=== PATIENT | female | born 1990 | race Hispanic/Latino ===

== ENCOUNTER 2018-08-24 21:52 | Emergency (ER) | payer OTHER, SELFPAY ==
--- NOTE | 2018-08-24 22:13 | EDPHYS ---
Physician Documentation [facility] Name: Genevieve Moseley Age: 28 yrs Sex: Female : 1990 Arrival Date: 08/24/2018 Time: 21:54 Bed 16 Private MD: Hector Wilkinson E ED Physician Jameel Ballard HPI: 08/24 22:15 This 28 yrs old Female presents to ER via Ambulatory with complaints of Cough. pm1 22:15 The patient or guardian reports cough, sinus pressure. Onset: The symptoms/episode pm1 began/occurred 4 day(s) ago. Severity of symptoms: in the emergency department the symptoms are actually worse. Modifying factors: The symptoms are alleviated by OTC cold preparation, the symptoms are aggravated by nothing. Associated signs and symptoms: Pertinent positives: earache, rhinorrhea, sore throat, Pertinent negatives: fever. The patient has not experienced similar symptoms in the past. The patient has not recently seen a physician. left sided sinus congestion. 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 - Social history:: Smoking status: Patient/guardian denies using tobacco. - Ebola Screening: : Patient denies travel to an Ebola-affected area in the 21 days before illness onset. ROS: 22:15 Constitutional: Negative for fever, chills, and weight loss, Eyes: Negative for injury, pm1 pain, redness, and discharge, Neck: Negative for injury, pain, and swelling. 22:15 Cardiovascular: Negative for chest pain, palpitations, and edema. 22:15 Abdomen/GI: Negative for abdominal pain, nausea, vomiting, diarrhea, and constipation, Back: Negative for injury and pain, : Negative for injury, bleeding, discharge, and swelling, MS/Extremity: Negative for injury and deformity, Skin: Negative for injury, rash, and discoloration, Neuro: Negative for headache, weakness, numbness, tingling, and seizure. 22:15 ENT: Positive for ear pain, rhinorrhea, sinus congestion, sinus pain, sore throat. 22:15 Respiratory: Positive for cough, Negative for shortness of breath, sputum production, wheezing. Exam: 22:15 Constitutional: This is a well developed, well nourished patient who is awake, alert, pm1 and in no acute distress. 22:15 Eyes: Pupils equal round and reactive to light, extra-ocular motions intact. Lids and lashes normal. Conjunctiva and sclera are non-icteric and not injected. Cornea within normal limits. Periorbital areas with no swelling, redness, or edema. 22:15 Neck: Trachea midline, no thyromegaly or masses palpated, and no cervical lymphadenopathy. Supple, full range of motion without nuchal rigidity, or vertebral point tenderness. No Meningismus. Chest/axilla: Normal chest wall appearance and motion. Nontender with no deformity. No lesions are appreciated. Cardiovascular: Regular rate and rhythm with a normal S1 and S2. No gallops, murmurs, or rubs. Normal PMI, no JVD. No pulse deficits. Respiratory: Lungs have equal breath sounds bilaterally, clear to auscultation and percussion. No rales, rhonchi or wheezes noted. No increased work of breathing, no retractions or nasal flaring. Abdomen/GI: Soft, non-tender, with normal bowel sounds. No distension or tympany. No guarding or rebound. No evidence of tenderness throughout. Back: No spinal tenderness. No costovertebral tenderness. Full range of motion. Skin: Warm, dry with normal turgor. Normal color with no rashes, no lesions, and no evidence of cellulitis. MS/ Extremity: Pulses equal, no cyanosis. Neurovascular intact. Full, normal range of motion. 22:15 Head/face: Sinus tenderness, that is moderate, is located over the left frontal sinus and left maxillary sinus. 22:15 ENT: External ear(s): are unremarkable, Ear canal(s): are normal, TM's: are normal, Nose: nasal drainage, that is minimal, and is seen coming from both nares, that is clear, that is thin, Posterior pharynx: is normal, airway is patent, no erythema, no exudate, no peritonsilar mass, no pooling of secretions, no swelling, no acute changes, peritonsillar mass, is not appreciated, pooling of secretions, is not appreciated. 22:15 Neuro: Orientation: is normal, Motor: is normal, Sensation: is normal, no obvious gross deficits, Gait: is steady, at a normal pace, without difficulty. Vital Signs: 22:00 BP 151 / 85; Pulse 92; Resp 22; Temp 97.2; Pulse Ox 97% on R/A; Weight 121.56 kg (R); aj1 Height 5 ft. 4 in. (162.56 cm) (R); Pain 4/10; 22:00 Body Mass Index 46.00 (121.56 kg, 162.56 cm) aj1 MDM: 22:04 Patient medically screened. pm1 22:12 Data reviewed: vital signs. Data interpreted: Pulse oximetry: on room air is 97 %. pm1 Interpretation: normal. Counseling: I had a detailed discussion with the patient and/or guardian regarding: the historical points, exam findings, and any diagnostic results supporting the discharge/admit diagnosis, the need for outpatient follow up, to return to the emergency department if symptoms worsen or persist or if there are any questions or concerns that arise at home. Administered Medications: No medications were administered Disposition: 08/24/18 22:12 Discharged to Home. Impression: Acute sinusitis. - Condition is Stable. - Discharge Instructions: Sinusitis, Adult. - Prescriptions for Zithromax 500 mg Oral Tablet - take 1 tablet by ORAL route once daily for 3 days; 3 tablet. Zyrtec- D 5-120 mg Oral Tablet Sustained Release 12 hr - take 1 tablet by ORAL route every 12 hours As needed; 20 tablet. Tessalon Perles 100 mg Oral Capsule - take 1 capsule by ORAL route every 8 hours As needed; 15 capsule. - Medication Reconciliation Form, Thank You Letter, Antibiotic Education form. - Follow up: Emergency Department; When: As needed; Reason: Worsening of condition. Follow up: Hector Wilkinson MD; When: 2 - 3 days; Reason: Recheck today's complaints, Continuance of care, Re-evaluation by your physician. - Problem is new. - Symptoms have improved. Addendum: 08/28/2018 04:01 Co-signature as Attending Physician, Jameel Ballard MD. g s Signatures: Jana James RN RN aj1 Vonnie Espino RN RN aa1 Nikhil Peñaloza NP MICROELECTRONICS TECHNICIAN pm1 Jameel Ballard MD MD gs Corrections: (The following items were deleted from the chart) 08/24 22:26 22:12 08/24/2018 22:12 Discharged to Home. Impression: Acute sinusitis. Condition is aa1 Stable. Forms are Medication Reconciliation Form, Thank You Letter, Antibiotic Education, Prescription Opioid Use. Follow up: Emergency Department; When: As needed; Reason: Worsening of condition. Follow up: Hector Wilkinson; When: 2 - 3 days; Reason: Recheck today's complaints, Continuance of care, Re-evaluation by your physician. Problem is new. Symptoms have improved. pm1
--- NOTE | 2018-08-24 22:13 | ER ---
Nurse's Notes [facility] Name: Genevieve Moseley Age: 28 yrs Sex: Female : 1990 Arrival Date: 08/24/2018 Time: 21:54 Bed 16 Private MD: Hector Wilkinson E Diagnosis: Acute sinusitis Presentation: 08/24 21:58 Presenting complaint: Patient states: "I think I have bronchitis. I'm coughing so bad aj1 that I'm almost vomiting. I'm having headache and sinus pressure" Reports she has been having these symptoms for the past 4 days. Denies fever. Transition of care: patient was not received from another setting of care. Onset of symptoms was August 20, 2018. Risk Assessment: Do you want to hurt yourself or someone else? Patient reports no desire to harm self or others. Initial Sepsis Screen: Does the patient meet any 2 criteria? HR > 90 bpm. No. Patient's initial sepsis screen is negative. Does the patient have a suspected source of infection? Yes: Productive cough/pneumonia. Care prior to arrival: None. 21:58 Method Of Arrival: Ambulatory aj1 21:58 Acuity: ARLEN 4 aj1 Triage Assessment: 22:00 General: Appears in no apparent distress. uncomfortable, Behavior is calm, cooperative, aj1 appropriate for age. Pain: Complains of pain in face, left aspect of posterior pharynx and right aspect of posterior pharynx Pain currently is 4 out of 10 on a pain scale. Neuro: Level of Consciousness is awake, alert, obeys commands. Cardiovascular: Patient's skin is warm and dry. Respiratory: Reports shortness of breath on exertion cough that is hacking, persistent Airway is patent Respiratory effort is even, unlabored, Respiratory pattern is regular, symmetrical. 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 - Social history:: Smoking status: Patient/guardian denies using tobacco. - Ebola Screening: : Patient denies travel to an Ebola-affected area in the 21 days before illness onset. Screenin:10 Abuse screen: Denies threats or abuse. Denies injuries from another. Nutritional aa1 screening: No deficits noted. Tuberculosis screening: No symptoms or risk factors identified. Fall Risk None identified. Assessment: 22:10 General: Appears in no apparent distress. comfortable, Behavior is calm, cooperative, aa1 appropriate for age. Pain: Complains of pain in face Quality of pain is described as pressure, Pain began 4 days ago. Neuro: Level of Consciousness is awake, alert, obeys commands, Oriented to person, place, time, situation, Moves all extremities. Gait is steady, Speech is normal. Respiratory: Reports cough that is non-productive, persistent Airway is patent Respiratory effort is even, unlabored, Respiratory pattern is regular, symmetrical, Breath sounds are clear bilaterally. GI: No signs and/or symptoms were reported involving the gastrointestinal system. : No signs and/or symptoms were reported regarding the genitourinary system. EENT: Throat is clear. Derm: Skin is intact, is healthy with good turgor, Skin is pink, warm \\T\\ dry. Musculoskeletal: Circulation, motion, and sensation intact. Capillary refill < 3 seconds. 22:24 Reassessment: Patient appears in no apparent distress at this time. Patient is alert, aa1 oriented x 3, equal unlabored respirations, skin warm/dry/pink. Discussed d/c \\T\\ f/u instructions with pt \\T\\ spouse; denies questions or concerns at this time. Vital Signs: 22:00 BP 151 / 85; Pulse 92; Resp 22; Temp 97.2; Pulse Ox 97% on R/A; Weight 121.56 kg (R); aj1 Height 5 ft. 4 in. (162.56 cm) (R); Pain 4/10; 22:00 Body Mass Index 46.00 (121.56 kg, 162.56 cm) aj1 ED Course: 21:54 Patient arrived in ED. es 21:55 Hector Wilkinson MD is Private Physician. es 21:59 Triage completed. aj1 22:00 Arm band placed on Patient placed in an exam room. aj1 22:01 Nikhil Peñaloza NP is PHCP. pm1 22:01 Jameel Ballard MD is Attending Physician. pm1 22:10 Patient has correct armband on for positive identification. Bed in low position. Call aa1 light in reach. 22:12 Hector Wilkinson MD is Referral Physician. pm1 22:24 Vonnie Espino, RN is Primary Nurse. aa1 22:24 No provider procedures requiring assistance completed. Patient did not have IV access aa1 during this emergency room visit. Administered Medications: No medications were administered Outcome: 22:12 Discharge ordered by MD. pm1 22:24 Discharged to home ambulatory, with significant other. aa1 22:24 Condition: good 22:24 Discharge instructions given to patient, significant other, Instructed on discharge instructions, follow up and referral plans. medication usage, Demonstrated understanding of instructions, follow-up care, medications, Prescriptions given X 3. 22:26 Patient left the ED. aa1 Signatures: Jana James, RN RN aj1 Vonnie Espino, SPARKLE RN aa1 Lala Mott Patrick, POLYSOMNOGRAPHIC TECHNICIAN POLYSOMNOGRAPHIC TECHNICIAN pm1
[2018-08-25 03:42] VITALS: BP 151/85; TEMP 97.2; O2SAT 97
== END 2018-08-24 22:26 | disposition home or self-care (01) ==
LOC: ER 21:52
DX: J01.90 Acute sinusitis, unspecified (principal)
CPT/HCPCS: 99282

== ENCOUNTER 2018-11-26 12:32 | Emergency (ER) | payer SELFPAY ==
--- NOTE | 2018-11-26 14:57 | RAD REPORT ---
EXAM DESCRIPTION: RAD - Foot Right 3 View - 11/26/2018 2:11 pm CLINICAL HISTORY: Right foot pain status post injury FINDINGS: No fracture or dislocation is seen
--- NOTE | 2018-11-26 14:57 | RAD REPORT ---
EXAM DESCRIPTION: RAD - Ankle Right 3 View - 11/26/2018 2:11 pm CLINICAL HISTORY: Right ankle pain status post fall FINDINGS: No fracture or dislocation is seen. Soft tissue swelling laterally
[2018-11-26] MEDS ORDERED: HYDROCODONE/APAP 7.5/325 MG TAB ONE (15:18)
--- NOTE | 2018-11-26 15:49 | ER ---
Nurse's Notes [facility] Name: Genevieve Moseley Age: 28 yrs Sex: Female : 1990 Arrival Date: 11/26/2018 Time: 12:34 Bed 23 Private MD: Hector Wilkinson E Diagnosis: Sprain of other ligament of right ankle Presentation: 11/26 12:54 Presenting complaint: Patient states: Fell walking down the stairs today, reports pain sg bruising and swelling to the R ankle and right foot, denies any head injury or pain anywhere else on the body. Transition of care: patient was not received from another setting of care. Onset of symptoms was November 26, 2018. Risk Assessment: Do you want to hurt yourself or someone else? Patient reports no desire to harm self or others. Initial Sepsis Screen: Does the patient meet any 2 criteria? No. Patient's initial sepsis screen is negative. Does the patient have a suspected source of infection? No. Patient's initial sepsis screen is negative. Care prior to arrival: None. 12:54 Method Of Arrival: Ambulatory sg 12:54 Acuity: ARLEN 4 sg Triage Assessment: 12:52 General: Appears in no apparent distress. uncomfortable, well groomed, well developed, sg well nourished, Behavior is cooperative, appropriate for age, crying. Pain: Complains of pain in right ankle and anterior aspect of right ankle. Musculoskeletal: Circulation, motion, and sensation intact. Range of motion: intact in all extremities, Swelling present in right ankle and anterior aspect of right ankle Reports pain in right ankle and right foot. Historical: - Allergies: 12:55 PENICILLINS; sg - PMHx: 12:55 gestational diabetes; sg - PSHx: 12:55 ; Hernia repair; sg - Immunization history:: Adult Immunizations up to date. - Social history:: Smoking status: Patient/guardian denies using tobacco. - Ebola Screening: : Patient negative for fever greater than or equal to 101.5 degrees Fahrenheit, and additional compatible Ebola Virus Disease symptoms Patient denies exposure to infectious person Patient denies travel to an Ebola-affected area in the 21 days before illness onset No symptoms or risks identified at this time. Screenin:28 Abuse screen: Denies threats or abuse. Denies injuries from another. Nutritional rv screening: No deficits noted. Tuberculosis screening: No symptoms or risk factors identified. Fall Risk None identified. Assessment: 15:27 General: Appears in no apparent distress. uncomfortable. Pain: Complains of pain in rv right ankle. Neuro: Level of Consciousness is awake, alert, obeys commands, Oriented to person, place, time, situation. Cardiovascular: Capillary refill < 3 seconds. Respiratory: Airway is patent. GI: No signs and/or symptoms were reported involving the gastrointestinal system. : No signs and/or symptoms were reported regarding the genitourinary system. EENT: No signs and/or symptoms were reported regarding the EENT system. Derm: Skin is intact. Musculoskeletal: Swelling present in right ankle. Vital Signs: 12:56 BP 147 / 72; Pulse 98; Resp 18; Temp 97.2; Pulse Ox 100% on R/A; Pain 10/10; sg 16:01 BP 138 / 68; Pulse 88; Resp 19 S; Pulse Ox 100% on R/A; rv ED Course: 12:34 Patient arrived in ED. as 12:34 Hector Wilkinson MD is Private Physician. as 12:55 Triage completed. sg 12:56 Arm band placed on. sg 13:36 Cristal Rae FNP-C is PHCP. kb 13:36 Sp Prajapati MD is Attending Physician. kb 14:10 X-ray completed. Portable x-ray completed in exam room. Patient tolerated procedure mh1 well. 14:11 XRAY Ankle RIGHT 3 view In Process Unspecified. EDMS 14:11 XRAY Foot RIGHT 3 View In Process Unspecified. EDMS 14:43 Note: REPEAT XRAY TAKEN PER DR HOGAN. jb2 15:28 Patient has correct armband on for positive identification. Bed in low position. Call rv light in reach. Side rails up X 1. Adult w/ patient. Pulse ox on. NIBP on. 16:01 No provider procedures requiring assistance completed. Patient did not have IV access rv during this emergency room visit. Administered Medications: 15:08 Drug: [place] (7.5 mg-325 mg) 1 tabs Route: PO; rv 16:00 Follow up: Response: Pain is decreased rv Outcome: 15:48 Discharge ordered by . kb 16:01 Discharged to home with crutches. rv 16:01 Condition: good 16:01 Discharge instructions given to patient, Instructed on discharge instructions, follow up and referral plans. medication usage, Demonstrated understanding of instructions, follow-up care, medications, Prescriptions given X 1. 16:02 Patient left the ED. rv Signatures: Dispatcher [employer] EDMS Cristal Rae, ANALYSIS INTERNSHIP-C ANALYSIS INTERNSHIP-Oscar Estrella, SPARKLE RN Carlito Walton [facility] Eleanor Berrios [facility] Danielle Patel Ronaldo, RN RN rv
--- NOTE | 2018-11-26 15:49 | EDPHYS ---
Physician Documentation [facility] Name: Genevieve Moseley Age: 28 yrs Sex: Female : 1990 Arrival Date: 11/26/2018 Time: 12:34 Bed 23 Private MD: Hector Wilkinson E ED Physician Sp Prajapati HPI: 11/26 15:52 This 28 yrs old Female presents to ER via Ambulatory with complaints of Ankle kb Injury. 15:52 The patient presents with an injury, pain, that is acute, swelling, tenderness. The kb complaints affect the right ankle. Onset: The symptoms/episode began/occurred today. Context: The problem was sustained outdoors, resulted from the patient falling, The mechanism of injury is unknown. The patient is unable to bear weight. The patient is not able to ambulate. Associated signs and symptoms: Pertinent positives: swelling, Pertinent negatives: calf tenderness, fever, nausea, numbness, rash, tingling, vomiting, warmth, weakness. Modifying factors: The symptoms are alleviated by nothing, the symptoms are aggravated by weight bearing, movement. Severity of symptoms: At their worst the symptoms were moderate, in the emergency department the symptoms are unchanged. The patient has not experienced similar symptoms in the past. The patient has not recently seen a physician. Historical: - Allergies: 12:55 PENICILLINS; sg - PMHx: 12:55 gestational diabetes; sg - PSHx: 12:55 ; Hernia repair; sg - Immunization history:: Adult Immunizations up to date. - Social history:: Smoking status: Patient/guardian denies using tobacco. - Ebola Screening: : Patient negative for fever greater than or equal to 101.5 degrees Fahrenheit, and additional compatible Ebola Virus Disease symptoms Patient denies exposure to infectious person Patient denies travel to an Ebola-affected area in the 21 days before illness onset No symptoms or risks identified at this time. ROS: 15:51 Constitutional: Negative for fever, chills, and weight loss, Cardiovascular: Negative kb for chest pain, palpitations, and edema, Respiratory: Negative for shortness of breath, cough, wheezing, and pleuritic chest pain, Abdomen/GI: Negative for abdominal pain, nausea, vomiting, diarrhea, and constipation, : Negative for injury, bleeding, discharge, and swelling, Skin: Negative for injury, rash, and discoloration, Neuro: Negative for headache, weakness, numbness, tingling, and seizure. 15:51 MS/extremity: Positive for injury or acute deformity, decreased range of motion, pain, swelling, tenderness, of the right foot and right ankle. Exam: 15:51 Constitutional: This is a well developed, well nourished patient who is awake, alert, kb and in no acute distress. Head/Face: Normocephalic, atraumatic. ENT: Nares patent. No nasal discharge, no septal abnormalities noted. Tympanic membranes are normal and external auditory canals are clear. Oropharynx with no redness, swelling, or masses, exudates, or evidence of obstruction, uvula midline. Mucous membranes moist. Neck: Trachea midline, no thyromegaly or masses palpated, and no cervical lymphadenopathy. Supple, full range of motion without nuchal rigidity, or vertebral point tenderness. No Meningismus. Chest/axilla: Normal chest wall appearance and motion. Nontender with no deformity. No lesions are appreciated. Cardiovascular: Regular rate and rhythm with a normal S1 and S2. No gallops, murmurs, or rubs. Normal PMI, no JVD. No pulse deficits. Respiratory: Lungs have equal breath sounds bilaterally, clear to auscultation and percussion. No rales, rhonchi or wheezes noted. No increased work of breathing, no retractions or nasal flaring. Abdomen/GI: Soft, non-tender, with normal bowel sounds. No distension or tympany. No guarding or rebound. No evidence of tenderness throughout. Skin: Warm, dry with normal turgor. Normal color with no rashes, no lesions, and no evidence of cellulitis. Neuro: Awake and alert, GCS 15, oriented to person, place, time, and situation. Cranial nerves II-XII grossly intact. Motor strength 5/5 in all extremities. Sensory grossly intact. Cerebellar exam normal. Normal gait. 15:51 Musculoskeletal/extremity: Extremities: grossly normal except: noted in the right foot and right ankle: decreased ROM, pain, swelling, tenderness, ROM: limited active range of motion due to pain, in the right ankle, Circulation is intact in all extremities. Sensation intact. Weight bearing: is unable to bear weight. Vital Signs: 12:56 BP 147 / 72; Pulse 98; Resp 18; Temp 97.2; Pulse Ox 100% on R/A; Pain 10/10; sg 16:01 BP 138 / 68; Pulse 88; Resp 19 S; Pulse Ox 100% on R/A; rv MDM: 14:40 Patient medically screened. kb 15:51 Data reviewed: vital signs, nurses notes. Data interpreted: Pulse oximetry: on room air kb is 100 %. Interpretation: normal. Counseling: I had a detailed discussion with the patient and/or guardian regarding: the historical points, exam findings, and any diagnostic results supporting the discharge/admit diagnosis, radiology results, the need for outpatient follow up, a orthopedic surgeon, to return to the emergency department if symptoms worsen or persist or if there are any questions or concerns that arise at home. 11/26 13:00 Order name: XRAY Ankle RIGHT 3 view; Complete Time: 14:58 sg 11/26 13:00 Order name: XRAY Foot RIGHT 3 View; Complete Time: 15:01 sg 11/26 15:01 Order name: Short Leg Splint; Complete Time: 15:26 kb 11/26 15:01 Order name: Crutches; Complete Time: 15:27 kb Administered Medications: 15:08 Drug: [place] (7.5 mg-325 mg) 1 tabs Route: PO; rv 16:00 Follow up: Response: Pain is decreased rv Disposition: 11/26/18 15:48 Discharged to Home. Impression: Sprain of other ligament of right ankle. - Condition is Stable. - Discharge Instructions: Ankle Sprain, [id number]. - Prescriptions for Diclofenac Sodium 75 mg Oral Tablet, Delayed Release (E.C.) - take 1 tablet by ORAL route 2 times per day As needed; 30 tablet. - Medication Reconciliation Form, Thank You Letter, Antibiotic Education, Prescription Opioid Use form. - Follow up: Emergency Department; When: As needed; Reason: Worsening of condition. Follow up: Private Physician; When: 2 - 3 days; Reason: Recheck today's complaints, Continuance of care, Re-evaluation by your physician. Addendum: 11/27/2018 19:03 Co-signature as Attending Physician, Sp Prajapati MD I agree with the assessment and k dr plan of care. Signatures: Dispatcher [employer] Cristal Castañeda, PEARL RESTORER-C PEARL RESTORER-CkOscar Peralta RN RN sg Sp Prajapati MD MD [facility] Tyrone Negron RN RN rv Corrections: (The following items were deleted from the chart) 11/26 16:02 15:48 11/26/2018 15:48 Discharged to Home. Impression: Sprain of other ligament of rv right ankle. Condition is Stable. Forms are Medication Reconciliation Form, Thank You Letter, Antibiotic Education, Prescription Opioid Use. Follow up: Emergency Department; When: As needed; Reason: Worsening of condition. Follow up: Private Physician; When: 2 - 3 days; Reason: Recheck today's complaints, Continuance of care, Re-evaluation by your physician. kb
[2018-11-26 16:07] VITALS: TEMP 97.2; O2SAT 100
[2018-11-26 16:08] VITALS: BP 138/68
== END 2018-11-26 16:02 | disposition home or self-care (01) ==
LOC: ER 12:32
DX: S93.491A Sprain of other ligament of right ankle, initial encounter (principal); W19.XXXA Unspecified fall, initial encounter; Y93.9 Activity, unspecified; Y92.89 Other specified places as the place of occurrence of the external cause; Z88.0 Allergy status to penicillin
CPT/HCPCS: 99284

== ENCOUNTER 2020-12-18 06:01 | Emergency (ER) | payer BC, SELFPAY ==
--- OUTSIDE RECORDS SUMMARY | 2020-12-18 06:03 | XMS REPORT | Continuity of Care Document ---
:1990 Author Organization [facility] t Address [address] [place] [address] Dr. Arevalo [address] [place] [address] Care Team Providers Name Role Phone Unavailable Unavailable Unavailable Problems Condition Condition Condition Status Onset Resolution Last Treating Co mments Source Name Details Category Date Date Treatment Clinician Date Hypothyroi Hypothyroi Problem Active [facility] illage dism dism 2-05 Family 00:00: Practic 00 e Diabetes Diabetes Problem Active [place] ge mellitus Mellitus 2- Family 00:00: Practic 00 e Hypertrigl Hypertrigl Problem Active [facility] yceridemia yceridemia 2-05 Fa angel 00:00: Practic 00 e Dyslipidem Dyslipidem Problem Active [facility] ia ia 2- Family 00:00: Practic 00 e Allergies, Adverse Reactions, Alerts This patient has no known allergies or adverse reactions. Social History Smoking Status Start Date Stop Date Source Never Smoker [facility] P natasha Medications Ordered Filled Start Stop Current Ordering Indication Dosage Frequency Signature Comments Components Source Medication Medication Date Date Medication? Clinician (SIG) Name Name Ozempic Ozempic No .25mg Q1W Ozempic [place] ge 0.25 mg or 0.25 mg or 0.25 mg or Family 0.5 mg (2 0.5 mg (2 0.5 mg (2 Practic mg/1.5 mL) mg/1.5 mL) mg/1.5 mL) e subcutaneou subcutaneou subcutaneo s pen s pen us pen injector injector injector Inject 0.25 Inject 0.25 Inject mg every mg every 0.25 mg week by week by every week subcutaneou subcutaneou by s route. s route. subcutaneo us route. Immunizations Ordered Immunization Filled Immunization Date Status Commen ts Source Name Name Tdap Tdap 2020-11-03 Completed [facility] 14:34:00 Practice Vital Signs Vital Name Observation Time Observation Value Comments Source BP Diastolic 2020-11-03 00:00:00 78 mm[Hg] [facility] Height 2020-11-03 00:00:00 63 [in_i] [facility] BMI (Body Mass 2020-11-03 00:00:00 52.2 kg/m2 [facility] Family Index) Practice BP Systolic 2020-11-03 00:00:00 115 mm[Hg] [facility] Body Weight 2020-11-03 00:00:00 294.6 [lb_av] [facility] Procedures Procedure Date / Time Performed Performing Clinician Sour e Hernia Repair [facility] ractice Section [facility] Plan of Care Planned Activity Planned Date Details Comments Source Future Scheduled Test Dr.Amy Narvaez "Auto [facility] immune solution" Practice [code = Dr.Amy Narvaez "Auto immune solution"] Instructions [facility] Encounters Start End Encounter Admission Attending Care Care Encounter Source Date/Time Date/Time Type Type Clinicians Facility Department ID 2020-11-03 2020-11-03 [facility] [place] - [id number] [facility] - Prac tic [id number] _[facility] e [facility] ([facility]) [address], [place] [address] , Ph. Results This patient has no known results.
--- NOTE | 2020-12-18 06:38 | ER ---
Nurse's Notes [facility] Name: Genevieve Moseley Age: 30 yrs Sex: Female : 1990 Arrival Date: 12/18/2020 Time: 06:05 Bed 17 Private MD: Diagnosis: Acute sinusitis Presentation: 12/18 06:16 Chief complaint: Patient states: I am having sinus pressure, cough ( green phlegm) , rr5 congestion and I have been tested last Friday for COVID it was negative. denies fever. Coronavirus screen: Client denies travel out of the [place] in the last 14 days. congestion, cough unrelated to allergies. Ebola Screen: Patient negative for fever greater than or equal to 101.5 degrees Fahrenheit, and additional compatible Ebola Virus Disease symptoms Patient denies exposure to infectious person. Patient denies travel to an Ebola-affected area in the 21 days before illness onset. Resp Distress? No respiratory distress is noted at this time. Initial Sepsis Screen: Does the patient meet any 2 criteria? HR > 90 bpm. No. Patient's initial sepsis screen is negative. Does the patient have a suspected source of infection? Yes: Productive cough/pneumonia. Risk Assessment: Do you want to hurt yourself or someone else? Patient reports no desire to harm self or others. Onset of symptoms was December 18, 2020. 06:16 Method Of Arrival: Ambulatory rr5 06:16 Acuity: ARLEN 3 rr5 06:16 Care prior to arrival: Medication(s) given: pseudophed. 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 - Social history:: Smoking status: unknown Patient uses alcohol, occasionally. Screenin:21 Abuse screen: Denies threats or abuse. Denies injuries from another. Nutritional rr5 screening: No deficits noted. Tuberculosis screening: No symptoms or risk factors identified. Fall Risk None identified. Total Jc Fall Scale indicates No Risk (0-24 pts). Assessment: 06:21 General: Appears in no apparent distress. uncomfortable, Behavior is calm, cooperative, rr5 appropriate for age. Pain: Complains of pain in nose Pain currently is 5 out of 10 on a pain scale. Quality of pain is described as pressure, Pain began gradually, Is intermittent. Neuro: Level of Consciousness is awake, alert, obeys commands, Oriented to person, place, time. Cardiovascular: Capillary refill < 3 seconds Patient's skin is warm and dry. Respiratory: Reports cough that is productive, Airway is patent Respiratory effort is even, unlabored, Respiratory pattern is regular, symmetrical, GI: No signs and/or symptoms were reported involving the gastrointestinal system. : No signs and/or symptoms were reported regarding the genitourinary system. EENT: Reports congestion and sinus pressure. Derm: Skin temperature is warm. Musculoskeletal: Capillary refill < 3 seconds. 06:41 Reassessment: Patient appears in no apparent distress at this time. Patient is alert, rr5 oriented x 3, equal unlabored respirations, skin warm/dry/pink. discharge instruction given and explained without complaints made. Vital Signs: 06:16 BP 156 / 96; Pulse 105; Resp 19; Temp 98.9; Pulse Ox 96% ; Weight 122.47 kg; Height 5 rr5 ft. 5 in. (165.10 cm); Pain 5/10; 06:47 BP 149 / 90; Pulse 103; Resp 18; Pulse Ox 100% ; rr5 06:16 Body Mass Index 44.93 (122.47 kg, 165.10 cm) rr5 ED Course: 06:05 Patient arrived in ED. am4 06:11 Juan Antonio Braga RN is Primary Nurse. rr5 06:19 Usman Goncalves MD is Attending Physician. mh7 06:19 Triage completed. rr5 06:21 Arm band placed on right wrist. rr5 06:22 Patient has correct armband on for positive identification. Placed in gown. Bed in low rr5 position. Call light in reach. 06:41 No provider procedures requiring assistance completed. Patient did not have IV access rr5 during this emergency room visit. Administered Medications: 06:35 Drug: Tylenol 1000 mg Route: PO; rr5 06:47 Follow up: Response: No adverse reaction rr5 Outcome: 06:38 Discharge ordered by . mh7 06:41 Discharged to home ambulatory. rr5 06:41 Condition: stable 06:46 Discharge instructions given to patient, Instructed on discharge instructions, follow rr5 up and referral plans. medication usage, Demonstrated understanding of instructions, follow-up care, medications, Prescriptions given X 3. 06:47 Patient left the ED. rr5 Signatures: Juan Antonio Braga RN RN rr5 Usman Goncalves MD MD 7 Cyndy Patel [facility]
--- NOTE | 2020-12-18 06:38 | EDPHYS ---
Physician Documentation [facility] Name: Genevieve Moseley Age: 30 yrs Sex: Female : 1990 Arrival Date: 12/18/2020 Time: 06:05 Bed 17 Private MD: ED Physician Usman Goncalves HPI: 12/18 06:27 This 30 yrs old Female presents to ER via Ambulatory with complaints of mh7 Congestion, Sinus Congestion. 06:29 The patient or guardian reports Sinus congestion and pain. Onset: The symptoms/episode mh7 began/occurred 3 day(s) ago. Severity of symptoms: At their worst the symptoms were moderate, yesterday, in the emergency department the symptoms have improved, moderately. Modifying factors: The symptoms are alleviated by sudafed, the symptoms are aggravated by touching area. Associated signs and symptoms: Pertinent positives: chest pain, congestion, this patient has no pertinent positive symptoms Pertinent negatives: chest pain, diarrhea, ear ache, fever, nausea, rhinorrhea, sore throat, vomiting. 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 - Social history:: Smoking status: unknown Patient uses alcohol, occasionally. ROS: 06:29 Constitutional: Negative for fever, chills, and weight loss, Eyes: Negative for injury, mh7 pain, redness, and discharge, Neck: Negative for injury, pain, and swelling, Cardiovascular: Negative for chest pain, palpitations, and edema, Respiratory: Negative for shortness of breath, cough, wheezing, and pleuritic chest pain, Abdomen/GI: Negative for abdominal pain, nausea, vomiting, diarrhea, and constipation, Back: Negative for injury and pain, : Negative for injury, bleeding, discharge, and swelling, MS/Extremity: Negative for injury and deformity, Skin: Negative for injury, rash, and discoloration, Neuro: Negative for headache, weakness, numbness, tingling, and seizure, Psych: Negative for depression, anxiety, suicide ideation, homicidal ideation, and hallucinations, Allergy/Immunology: Negative for hives, rash, and allergies, Endocrine: Negative for neck swelling, polydipsia, polyuria, polyphagia, and marked weight changes, Hematologic/Lymphatic: Negative for swollen nodes, abnormal bleeding, and unusual bruising. Exam: 06:29 Constitutional: This is a well developed, well nourished patient who is awake, alert, mh7 and in no acute distress. 06:29 Eyes: Pupils equal round and reactive to light, extra-ocular motions intact. Lids and lashes normal. Conjunctiva and sclera are non-icteric and not injected. Cornea within normal limits. Periorbital areas with no swelling, redness, or edema. ENT: Nares patent. No nasal discharge, no septal abnormalities noted. Tympanic membranes are normal and external auditory canals are clear. Oropharynx with no redness, swelling, or masses, exudates, or evidence of obstruction, uvula midline. Mucous membranes moist. Neck: Trachea midline, no thyromegaly or masses palpated, and no cervical lymphadenopathy. Supple, full range of motion without nuchal rigidity, or vertebral point tenderness. No Meningismus. Chest/axilla: Normal chest wall appearance and motion. Nontender with no deformity. No lesions are appreciated. Cardiovascular: Regular rate and rhythm with a normal S1 and S2. No gallops, murmurs, or rubs. Normal PMI, no JVD. No pulse deficits. Respiratory: Lungs have equal breath sounds bilaterally, clear to auscultation and percussion. No rales, rhonchi or wheezes noted. No increased work of breathing, no retractions or nasal flaring. Abdomen/GI: Soft, non-tender, with normal bowel sounds. No distension or tympany. No guarding or rebound. No evidence of tenderness throughout. Back: No spinal tenderness. No costovertebral tenderness. Full range of motion. Skin: Warm, dry with normal turgor. Normal color with no rashes, no lesions, and no evidence of cellulitis. MS/ Extremity: Pulses equal, no cyanosis. Neurovascular intact. Full, normal range of motion. Neuro: Awake and alert, GCS 15, oriented to person, place, time, and situation. Cranial nerves II-XII grossly intact. Motor strength 5/5 in all extremities. Sensory grossly intact. Cerebellar exam normal. Normal gait. Psych: Awake, alert, with orientation to person, place and time. Behavior, mood, and affect are within normal limits. 06:29 Head/face: Sinus tenderness, that is moderate, is located over the right frontal sinus, left frontal sinus, right maxillary sinus and left maxillary sinus. Vital Signs: 06:16 BP 156 / 96; Pulse 105; Resp 19; Temp 98.9; Pulse Ox 96% ; Weight 122.47 kg; Height 5 rr5 ft. 5 in. (165.10 cm); Pain 5/10; 06:47 BP 149 / 90; Pulse 103; Resp 18; Pulse Ox 100% ; rr5 06:16 Body Mass Index 44.93 (122.47 kg, 165.10 cm) rr5 MDM: 06:29 Differential Diagnosis: Upper Respiratory Infection Sinusitis Viral Syndrome. Data [facility] reviewed: vital signs, nurses notes. Data interpreted: Pulse oximetry: on room air is 96 %. Interpretation: normal. Counseling: I had a detailed discussion with the patient and/or guardian regarding: the historical points, exam findings, and any diagnostic results supporting the discharge/admit diagnosis, the need for outpatient follow up, to return to the emergency department if symptoms worsen or persist or if there are any questions or concerns that arise at home. 06:38 Patient medically screened. [facility] Administered Medications: 06:35 Drug: Tylenol 1000 mg Route: PO; rr5 06:47 Follow up: Response: No adverse reaction rr5 Disposition: 12/18/20 06:38 Discharged to Home. Impression: Acute sinusitis. - Condition is Stable. - Discharge Instructions: Sinusitis, Adult, [id number]. - Prescriptions for guaifenesin 200 mg Oral tablet - take 1 tablet by ORAL route every 4 hours As needed as needed; 15 tablet. Zithromax Z- Edward 250 mg Oral Tablet - take 1 tablet by ORAL route as directed for 5 days Day 1 - take two (2) tablets one time. Day 2, 3, 4 , 5 take one (1) tablet once daily.; 6 tablet. Afrin (oxymetazoline) 0.05 % Nasal Aerosol, [place] - spray 2 sprays by INTRANASAL route 2 times per day As needed; 1 Container. - Medication Reconciliation Form, Thank You Letter, Antibiotic Education, Prescription Opioid Use form. - Follow up: Private Physician; When: 1 - 2 days; Reason: Worsening of condition, Recheck today's complaints, Continuance of care, Re-evaluation by your physician. - Problem is new. - Symptoms have improved. Signatures: Juan Antonio Braga RN RN rr5 Usman Goncalves MD MD mh7 Corrections: (The following items were deleted from the chart) 06:47 06:38 12/18/2020 06:38 Discharged to Home. Impression: Acute sinusitis. Condition is rr5 Stable. Forms are Medication Reconciliation Form, Thank You Letter, Antibiotic Education, Prescription Opioid Use. Follow up: Private Physician; When: 1 - 2 days; Reason: Worsening of condition, Recheck today's complaints, Continuance of care, Re-evaluation by your physician. Problem is new. Symptoms have improved. mh7
[2020-12-18] MEDS ORDERED: ACETAMINOPHEN 500 MG TAB ONE (06:47)
[2020-12-18 06:52] VITALS: TEMP 98.9
[2020-12-18 06:54] VITALS: BP 149/90; O2SAT 100
== END 2020-12-18 06:47 | disposition home or self-care (01) ==
LOC: ER 06:01
DX: J01.90 Acute sinusitis, unspecified (principal); Z88.0 Allergy status to penicillin
CPT/HCPCS: 99283

== ENCOUNTER 2021-02-24 21:10 | Emergency (ER) | payer BC ==
--- OUTSIDE RECORDS SUMMARY | 2021-02-24 21:14 | XMS REPORT | Continuity of Care Document ---
:1990 Author Organization [facility] t Address [address] [place] [address] Dr. Arevalo [address] [place] [address] Care Team Providers Name Role Phone Unavailable [...] Start Date Stop Date Source Never Smoker [facility] Family P natasha Medications Ordered Filled Start [...] Source Name Name Tdap Tdap 2020-11-03 Completed [facility] 14:34:00 Practice Vital Signs Vital Name Observation Time Observation Value Comments Source BP Diastolic 2020-11-03 00:00:00 78 mm[Hg] [facility] Height 2020-11-03 00:00:00 63 [in_i] [facility] BMI (Body Mass 2020-11-03 00:00:00 52.2 kg/m2 [facility] Family Index) Practice BP Systolic 2020-11-03 00:00:00 115 mm[Hg] [facility] Body Weight 2020-11-03 00:00:00 294.6 [lb_av] [facility] Procedures Procedure Date / Time Performed Performing Clinician Sour e Hernia Repair [facility] ractice Section [facility] Plan of Care Planned Activity Planned Date Details Comments Source Future Scheduled Test Dr.Amy Narvaez "Auto [facility] immune solution" Practice [code = Dr.Amy Narvaez "Auto immune solution"] Instructions [facility] Encounters Start End Encounter Admission Attending Care Care Encounter Source Date/Time Date/Time Type Type Clinicians Facility Department ID 2020-11-03 2020-11-03 [facility] [place] - [id number] [facility]: Medical - Prac tic [id number] _[facility] ([facility]) [address], [place] [address] , Ph. Results This patient has no known results.
[2021-02-24] MEDS ORDERED: dexAMETHasone 10 MG/ML VIAL ONE (23:37)
[2021-02-24] MEDS ORDERED: FAMOTIDINE 20 MG TAB ONE (23:37)
[2021-02-24] MEDS ORDERED: DIPHENHYDRAMINE 25 MG TAB/CAP ONE (23:37)
--- NOTE | 2021-02-25 00:24 | EDPHYS ---
Physician Documentation [facility] Name: Genevieve Moseley Age: 30 yrs Sex: Female : 1990 Arrival Date: 02/24/2021 Time: 21:14 Bed 24 Private MD: ED Physician Usman Goncalves HPI: 02/24 23:13 This 30 yrs old Female presents to ER via Ambulatory with complaints of Rash. pm1 23:13 The patient's rash thought to be caused by an unknown cause. The rash is located on the pm1 right arm, left arm, right leg and left leg. The rash can be described as raised. Onset: The symptoms/episode began/occurred yesterday. Associated signs and symptoms: Pertinent positives: itching, Pain Pertinent negatives: difficulty breathing, fever, swelling of lips, swelling of throat, swelling of tongue. Severity of symptoms: in the emergency department the symptoms are unchanged. Treatment given at home: Benadryl, steroid lotion/cream. The patient has not experienced similar symptoms in the past. The patient has not recently seen a physician. 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 Flu vaccine is up to date. - Social history:: Smoking status: Patient denies any tobacco usage or history of. ROS: 23:13 Constitutional: Negative for fever, chills, and weight loss, Eyes: Negative for injury, pm1 pain, redness, and discharge, ENT: Negative for injury, pain, and discharge, Cardiovascular: Negative for chest pain, palpitations, and edema, Respiratory: Negative for shortness of breath, cough, wheezing, and pleuritic chest pain, Abdomen/GI: Negative for abdominal pain, nausea, vomiting, diarrhea, and constipation, MS/Extremity: Negative for injury and deformity. 23:13 Neuro: Negative for headache, weakness, numbness, tingling, and seizure. 23:13 Skin: Positive for rash, of the left leg and right leg and left arm and right arm. Exam: 23:13 Constitutional: This is a well developed, well nourished patient who is awake, alert, pm1 and in no acute distress. Head/Face: Normocephalic, atraumatic. 23:13 Eyes: Extraocular movements: intact throughout, Conjunctiva: no acute changes, Sclera: no acute changes. 23:13 ENT: Mouth: Lips: normal, Oral mucosa: normal, pink and intact, moist. 23:13 Cardiovascular: Rate: normal, Rhythm: regular, Pulses: no pulse deficits are appreciated. 23:13 Respiratory: Exam negative for acute changes, respiratory distress, shortness of breath, Breath sounds: are clear throughout. 23:13 Skin: Appearance: normal except for affected area, consistent with insect bites, on the left leg and right leg and left arm and right arm. 23:13 Neuro: Exam negative for acute changes, Orientation: is normal, Mentation: is normal, Motor: is normal, moves all fours, Gait: is steady, at a normal pace, without difficulty. Vital Signs: 21:37 BP 138 / 76; Pulse 83; Resp 18 S; Temp 97.6(TE); Pulse Ox 98% on R/A; ca1 MDM: 23:04 Patient medically screened. pm1 02/25 00:23 Data reviewed: vital signs. Data interpreted: Pulse oximetry: on room air is 98 %. pm1 Interpretation: normal. 00:23 Counseling: I had a detailed discussion with the patient and/or guardian regarding: the pm1 historical points, exam findings, and any diagnostic results supporting the discharge/admit diagnosis, the need for outpatient follow up, to return to the emergency department if symptoms worsen or persist or if there are any questions or concerns that arise at home. Administered Medications: 02/24 23:25 Drug: Decadron (dexamethasone) 10 mg Route: IM; Site: left ventrogluteal; iw 23:50 Follow up: Response: No adverse reaction iw 23:25 Drug: Benadryl (diphenhydrAMINE) 25 mg Route: PO; iw 23:50 Follow up: Response: No adverse reaction iw 23:26 Drug: Pepcid (famotidine) 20 mg Route: PO; iw 23:50 Follow up: Response: No adverse reaction iw Disposition: 02/25 06:19 Co-signature as Attending Physician, Usman Goncalves MD. mh7 Disposition: 02/25/21 00:24 Discharged to Home. Impression: Rash and other nonspecific skin eruption. - Condition is Stable. - Discharge Instructions: Insect Bite, Rash. - Prescriptions for Benadryl 25 mg Oral Capsule - take 1 capsule by ORAL route every 6 hours As needed; 30 tablet. Pepcid 20 mg Oral Tablet - take 1 tablet by ORAL route every 12 hours for 10 days; 20 tablet. Medrol (Edward) 4 mg Oral Tablets, Dose Pack - take 1 tablet by ORAL route as directed - follow package instructions; 1 packet. - Medication Reconciliation Form, Thank You Letter, Antibiotic Education, Prescription Opioid Use form. - Follow up: Emergency Department; When: As needed; Reason: Worsening of condition. Follow up: Private Physician; When: 2 - 3 days; Reason: Recheck today's complaints, Continuance of care, Re-evaluation by your physician. - Problem is new. - Symptoms have improved. Signatures: Naomi Frances RN RN iw Nikhil Peñaloza NP LINE CLEARANCE FOREMAN pm1 Ирина Velez RN RN ca1 Usman Goncalves MD MD mh7 Corrections: (The following items were deleted from the chart) 00:41 00:24 02/25/2021 00:24 Discharged to Home. Impression: Rash and other nonspecific skin iw eruption. Condition is Stable. Discharge Instructions: Insect Bite, Rash. Prescriptions for Benadryl 25 mg Oral Capsule - take 1 capsule by ORAL route every 6 hours As needed; 30 tablet, Pepcid 20 mg Oral Tablet - take 1 tablet by ORAL route every 12 hours for 10 days; 20 tablet, Medrol (Edward) 4 mg Oral Tablets, Dose Pack - take 1 tablet by ORAL route as directed - follow package instructions; 1 packet. and Forms are Medication Reconciliation Form, Thank You Letter, Antibiotic Education, Prescription Opioid Use. Follow up: Emergency Department; When: As needed; Reason: Worsening of condition. Follow up: Private Physician; When: 2 - 3 days; Reason: Recheck today's complaints, Continuance of care, Re-evaluation by your physician. Problem is new. Symptoms have improved. pm1
--- NOTE | 2021-02-25 00:24 | ER ---
Nurse's Notes [facility] Name: Genevieve Moseley Age: 30 yrs Sex: Female : 1990 Arrival Date: 02/24/2021 Time: 21:14 Bed 24 Private MD: Diagnosis: Rash and other nonspecific skin eruption Presentation: 02/24 21:37 Chief complaint: Patient states: Rash and bumps all over my body, Noticed started ca1 yesterday. C/O severe itching. Took Benadryl and Cortisone, no relief. Coronavirus screen: Client denies travel out of the [place] in the last 14 days. At this time, the client does not indicate any symptoms associated with coronavirus-19. Ebola Screen: Patient negative for fever greater than or equal to 101.5 degrees Fahrenheit, and additional compatible Ebola Virus Disease symptoms Patient denies exposure to infectious person. Patient denies travel to an Ebola-affected area in the 21 days before illness onset. No symptoms or risks identified at this time. Initial Sepsis Screen: Does the patient meet any 2 criteria? No. Patient's initial sepsis screen is negative. Does the patient have a suspected source of infection? No. Patient's initial sepsis screen is negative. Risk Assessment: Do you want to hurt yourself or someone else? Patient reports no desire to harm self or others. Onset of symptoms was February 24, 2021. 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 Flu vaccine is up to date. - Social history:: Smoking status: Patient denies any tobacco usage or history of. Screenin:55 Abuse screen: Denies threats or abuse. Denies injuries from another. Nutritional iw screening: No deficits noted. Tuberculosis screening: No symptoms or risk factors identified. Fall Risk None identified. Assessment: 23:00 General: Appears in no apparent distress. Behavior is calm, cooperative. Pain: Denies iw pain. Neuro: Level of Consciousness is awake, alert, obeys commands, Oriented to person, place, time, situation. Derm: Rash noted that is raised, urticaria, on right arm, left arm, right leg and left leg. Musculoskeletal: Range of motion: intact in all extremities. 23:54 Reassessment: Patient appears in no apparent distress at this time. Patient and/or iw family updated on plan of care and expected duration. Pain level reassessed. Patient is alert, oriented x 3, equal unlabored respirations, skin warm/dry/pink. Vital Signs: 21:37 BP 138 / 76; Pulse 83; Resp 18 S; Temp 97.6(TE); Pulse Ox 98% on R/A; ca1 ED Course: 21:14 Patient arrived in ED. am4 21:40 Triage completed. ca1 21:40 Patient has correct armband on for positive identification. iw 21:41 Arm band placed on right wrist. ca1 22:44 Naomi Frances RN is Primary Nurse. iw 22:49 Nikhil Peñaloza NP is PHCP. pm1 22:49 Usman Goncalves MD is Attending Physician. pm1 23:55 No provider procedures requiring assistance completed. Patient did not have IV access iw during this emergency room visit. Administered Medications: 23:25 Drug: Decadron (dexamethasone) 10 mg Route: IM; Site: left ventrogluteal; iw 23:50 Follow up: Response: No adverse reaction iw 23:25 Drug: Benadryl (diphenhydrAMINE) 25 mg Route: PO; iw 23:50 Follow up: Response: No adverse reaction iw 23:26 Drug: Pepcid (famotidine) 20 mg Route: PO; iw 23:50 Follow up: Response: No adverse reaction iw Outcome: 02/25 00:24 Discharge ordered by . pm1 00:40 Discharged to home ambulatory. iw 00:40 Condition: good 00:40 Discharge instructions given to patient, Instructed on discharge instructions, follow up and referral plans. medication usage, Demonstrated understanding of instructions, follow-up care, medications, Prescriptions given X 3. 00:41 Patient left the ED. iw Signatures: Naomi Frances RN RN iw Nikhil Peñaloza NP PRINCIPAL STATISTICAL PROGRAMMER pm1 Ирина Velez RN RN ca1 Cyndy Patel am4
[2021-02-25 00:51] VITALS: BP 138/76; TEMP 97.6; O2SAT 98
== END 2021-02-25 00:41 | disposition home or self-care (01) ==
LOC: ER 21:10
DX: R21 Rash and other nonspecific skin eruption (principal); E11.9 Type 2 diabetes mellitus without complications; Z88.0 Allergy status to penicillin
CPT/HCPCS: 96372; 99283; J1100